=== PATIENT | male | born 1985 | race Two or more races ===

== ENCOUNTER 2021-11-17 23:21 | Emergency (ER) | payer SELFPAY ==
[~2021-11-17] VITALS: Ht 167.6 cm; Wt 127.0 kg
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
--- NOTE | 2021-11-17 23:36 | NUR ---
[employer] AT BEDSIDE FOR REPORT
[2021-11-17] MEDS ORDERED: HYDROCODONE/APAP 5/325MG TABLET ONE (23:56)
--- NOTE | 2021-11-17 23:59 | NUR ---
PT TAKEN FOR CT SCAN
[2021-11-18] MEDS ORDERED: HYDROCODONE/APAP 5/325MG TABLET PO ONE
--- NOTE | 2021-11-18 02:01 | NUR ---
Patient discharged to home in stable condition. Written and verbal after care instructions given. Patient verbalizes understanding of instruction.
[2021-11-18 02:35] VITALS: BP 159/96
== END 2021-11-18 02:37 | disposition home or self-care (01) ==
LOC: ER 23:25
DX: S00.83XA Contusion of other part of head, initial encounter (principal); Y04.0XXA Assault by unarmed brawl or fight, initial encounter; Y93.89 Activity, other specified; Y92.89 Other specified places as the place of occurrence of the external cause; Y99.8 Other external cause status
CPT/HCPCS: 70450-TC; 70486-TC